=== PATIENT | female | born 1945 | race Caucasian/White ===

== ENCOUNTER 2019-10-12 11:36 | Inpatient (IN) | payer MEDICARE, OTHER ==
[2019-10-12] MEDS ORDERED: Sodium Chloride 0.9% 1,000 ML IV SCH (12:00)
[2019-10-12] MEDS ORDERED: Sodium Chloride 0.9% 10 ML Syringe FLUSH PRN (12:07)
[2019-10-12] MEDS ORDERED: Polyethylene Glycol 3350 Powder 17 GM Packet PO PRN (12:07)
--- NOTE | 2019-10-12 12:13 | PCM.HP.2 ---
H&P History of Present Illness - General Date of Service: 10/12/19 Admit Problem/Dx: Admission Diagnosis/Problem Admission Diagnosis/Problem Abdominal Pain Source of Information: Patient, Provider, RN Notes Reviewed History Limitations: Reports: No Limitations - History of Present Illness Initial Comments - Free Text/Narative: Ms. Moffett is a 74-year-old woman who was admitted through the emergency department with abdominal pain for the past few months. She is experienced a 20 pound weight loss associated with this pain. She does report different types of pain within the abdomen. 1 pain is epigastric and is described as an ache. She has a second cramping pain in the left lower quadrant and periumbilical area that is been present since her surgery for hernia repair 3 months ago. Cramping pain seems to worsen with eating and improves if she avoids oral intake. CT scan of the abdomen was obtained on Saturday, October 08 and showed evidence of possible pancreatitis as well as associated inflammation in the duodenum. 2 separate lipase levels have been within normal range. Bilateral Abdomen Pain Score (Numeric/FACES): 6 - Related Data Allergies/Adverse Reactions: Allergies Allergy/AdvReac Type Severity Reaction Status Date / Time No Known Allergies Allergy Verified 10/09/19 13:16 Home Medications: Home Meds Acetaminophen [Tylenol] 650 mg PO BID PRN 10/12/19 [History] Cetirizine [ZyrTEC] 10 mg PO DAILY 10/12/19 [History] Docusate Sodium 100 mg PO DAILY 10/12/19 [History] Mv,Calcium,Min/Iron/Folic/Vitk [Multi For Her Tablet] 1 tab PO DAILY 10/12/19 [ History] Naproxen Sodium [Aleve] 220 mg PO DAILY PRN 10/12/19 [History] Oxybutynin 5 mg PO BID 10/12/19 [History] lisinopriL [Lisinopril] 5 mg PO DAILY 10/12/19 [History] H&P Review of Systems - Review of Systems: Review Of Systems: See Below General: Reports: Malaise, Weakness, Decreased Appetite, Weight Loss. Denies: Fever, Chills HEENT: Reports: No Symptoms Pulmonary: Reports: No Symptoms Cardiovascular: Reports: No Symptoms Gastrointestinal: Reports: Abdominal Pain, Decreased Appetite, Distension, Nausea. Denies: Black Stool, Bloody Stool, Constipation, Diarrhea, Difficulty Swallowing, Vomiting Genitourinary: Reports: No Symptoms Musculoskeletal: Reports: No Symptoms Skin: Reports: No Symptoms Psychiatric: Reports: No Symptoms Neurological: Reports: No Symptoms Hematologic/Lymphatic: Reports: No Symptoms Immunologic: Reports: No Symptoms Exam - Exam Exam: See Below - Exam Quality Assessment: DVT Prophylaxis General: Alert, Oriented, Cooperative, Moderate Distress HEENT: Conjunctiva Clear, Hearing Intact, Mucosa Moist & [place], Normal Nasal Septum, Posterior Pharynx Clear, Pupils Equal Neck: Supple, Trachea Midline, +2 Carotid Pulse wo Bruit Lungs: Clear to Auscultation, Normal Respiratory Effort Cardiovascular: Regular Rate, Regular Rhythm, Normal S1, Normal S2. No: Systolic Murmur, Diastolic Murmur GI/Abdominal Exam: Soft, No Organomegaly, Distended, Tender. No: Guarding, Rigid, Rebound Back Exam: Normal Inspection, Full Range of Motion Extremities: Non-Tender, No Pedal Edema Skin: Warm, Dry, Intact Neurological: Cranial Nerves Intact, Strength Equal Bilateral, Normal Speech, Normal Tone, Sensation Intact. No: Focal Deficit Neuro Extensive - Mental Status: Alert, Oriented x3, Normal Mood/Affect, Normal Cognition, Memory Intact - Patient Data Result Diagrams: 10/12/19 12:06 10/12/19 12:06 *Q Meaningful Use (ADM) - VTE *Q VTE Pharmacological Contraindications *Q: Patient Scheduled Surgery - VTE Risk Assess *Q Each Risk Factor Represents 1 Point: Obesity ( BMI > 25 kg/m2) Total Score 1 Point Risk Factors: 1 Each Risk Factor Represents 2 Points: Age 60 - 74 Years Total Score 2 Point Risk Factors: 2 Each Risk Factor Represents 3 Points: None Total Score 3 Point Risk Factors: 0 Each Risk Factor Represents 5 Points: None Total Score 5 Point Risk Factors: 0 Venous Thromboembolism Risk Factor Score *Q: 3 Problem List Initiated/Reviewed/Updated: Yes Orders Last 24hrs: Active Orders 24 hr Category Date Time Status Patient Status [ADT] Routine ADT 10/12/19 12:07 Ordered Ambulate [RC] QID Care 10/12/19 12:07 Ordered Height and Weight [RC] DAILY Care 10/12/19 12:07 Ordered Intake and Output [RC] QSHIFT Care 10/12/19 12:07 Ordered Notify Provider Vital Signs [RC] ASDIRECTED Care 10/12/19 12:07 Ordered Oxygen Therapy [RC] PRN Care 10/12/19 12:07 Ordered Peripheral IV Care [RC] . DIRECTED Care 10/12/19 12:12 Ordered Up ad Melissa [RC] ASDIRECTED Care 10/12/19 12:07 Ordered Up to Chair [RC] QID Care 10/12/19 12:07 Ordered VTE/DVT Education [RC] Per Unit Routine Care 10/12/19 12:07 Ordered Vital Signs [RC] Q4H Care 10/12/19 12:07 Ordered Nothing per Oral Now Diet [DIET] Diet 10/12/19 Lunch Ordered AMYLASE [CHEM] Routine Lab 10/12/19 12:06 Received CBC W/O DIFF,HEMOGRAM [HEME] AM Lab 10/13/19 05:11 Ordered CBC WITH AUTO DIFF [HEME] Routine Lab 10/12/19 12:06 Received COMPREHENSIVE METABOLIC PN,CMP [CHEM] AM Lab 10/13/19 05:11 Ordered COMPREHENSIVE METABOLIC PN,CMP [CHEM] Routine Lab 10/12/19 12:06 Received LIPASE [CHEM] Routine Lab 10/12/19 12:06 Received LIPASE [CHEM] Timed Lab 10/13/19 05:00 Ordered Acetaminophen [Tylenol] Med 10/12/19 12:07 Ordered 650 mg PO Q4H PRN Enoxaparin [Lovenox] Med 10/12/19 12:15 Ordered 40 mg SUBCUT DAILY Ondansetron [Zofran] Med 10/12/19 12:07 Ordered 4 mg IV Q4H PRN Sodium Chloride 0.9% @ 125 MLS/HR (1000ml) Med 10/12/19 12:15 Ordered Sodium Chloride 0.9% [Normal Saline] 1,000 ml IV ASDIRECTED Sodium Chloride 0.9% [Saline Flush] Med 10/12/19 12:07 Ordered 10 ml FLUSH ASDIRECTED PRN oxyCODONE Med 10/12/19 12:07 Ordered 5 mg PO Q4H PRN polyethylene glycoL 3350 [MiraLAX] Med 10/12/19 12:07 Ordered 17 gm PO DAILY PRN Peripheral IV Insertion Adult [OM.PC] Routine Oth 10/12/19 12:07 Ordered Resuscitation Status Routine Resus Stat 10/12/19 12:07 Ordered Assessment/Plan Comment:: ASSESSMENT AND PLAN ABDOMINAL PAIN-she has pain in the epigastric region as well as different pain in the left lower quadrant periumbilical region. Evidence of possible pancreatitis noted on CT scan but 2 separate lipase level also have been within normal range. There was also evidence of some duodenal inflammation noted on the CT scan and she does take nonsteroidal medication on a regular basis. -Protonix 40 mg IV twice daily -Consult Dr. Betancur for EGD in a.m. -Consider follow-up CT scan with oral contrast LEFT ADRENAL MASS-by her description this has been noted in the past and previously evaluated with follow-up scans -Obtain previous CT scan for comparison MAINTENANCE ISSUES -DVT prophylaxis; SCUDs, hold on Lovenox because of pending procedures -GI prophylaxis; Protonix as above -Epps catheter; not indicated -Nutrition; n.p.o. -Nicotinic dependence; not required CODE STATUS-FULL CODE ADMISSION STATUS-this patient will be admitted to observation status, expect no more than a one night hospital stay for evaluation and management of problems as outlined above. DISPOSITION-anticipate discharge to home after the hospital stay. PRIMARY CARE PROVIDER-she receives most of her health care in [place] - Mortality Measure Prognosis:: Good
[2019-10-12] MEDS ORDERED: Enoxaparin 40 MG/0.4 ML Syringe SUBCUT SCH (14:00)
[2019-10-12] MEDS: oxyCODONE 5 MG Tab PO PRN ×2 (14:04→19:49)
[2019-10-12] MEDS: Sodium Chloride 0.9% 1,000 ML IV SCH ×2 (14:06→22:08)
[2019-10-12] MEDS: Pantoprazole 40 MG Vial IVPUSH SCH (18:00)
[2019-10-12] MEDS: Enoxaparin 40 MG/0.4 ML Syringe SUBCUT SCH (18:01)
[2019-10-12] MEDS: OXYBUTYNIN 5 MG PO SCH (20:47)
[2019-10-13] MEDS: oxyCODONE 5 MG Tab PO PRN ×2 (05:00→10:00)
[2019-10-13] MEDS: Pantoprazole 40 MG Vial IVPUSH SCH ×2 (05:01→17:02)
[2019-10-13] MEDS: Sodium Chloride 0.9% 1,000 ML IV SCH ×2 (05:05→11:39)
[2019-10-13] MEDS: Acetaminophen 325 MG Tab PO PRN ×2 (07:46→11:48)
[2019-10-13] MEDS: OXYBUTYNIN 5 MG PO SCH ×2 (10:01→20:43)
[2019-10-13] MEDS: LISINOPRIL 5 MG PO SCH (10:02)
[2019-10-13] MEDS: Docusate Sodium 100 MG Cap PO SCH (10:03)
[2019-10-13] MEDS: CETIRIZINE 10 MG PO SCH (10:05)
[2019-10-13] MEDS ORDERED: Iopamidol 612 MG/ML 30 ML SDV PO ONE ×2 (10:20→11:19)
[2019-10-13] MEDS: Ondansetron 4 MG/2 ML SDV IV PRN (10:25)
[2019-10-13] MEDS ORDERED: Iopamidol 612 MG/ML 100 ML Bottle IV PRN (10:50)
[2019-10-13] MEDS ORDERED: Sodium Chloride 0.9% 10 ML Syringe FLUSH SCH (11:00)
[2019-10-13] MEDS ORDERED: HYDROmorphone 0.5 MG/0.5 ML Syringe IVPUSH ONE (11:49)
--- NOTE | 2019-10-13 14:49 | CT ---
Abdomen Pelvis w Cont CLINICAL HISTORY: Abdominal pain COMPARISON: 10/09/2019. TECHNIQUE: Transverse scans were obtained from the base of the lungs to the pubic symphysis following oral contrast and IV infusion of contrast.Auto dosage reduction and iterative reconstructiontechniques employed. FINDINGS: The lung bases are clear. The liver shows no mass or biliary dilatation. The gallbladder has been removed. The spleen has a normal size and shape. There is a LAP band in place. There is a slight change in orientation. This may be related to some gastric distention with contrast. The pancreas is better defined on the current study in the region of the pancreatic head. There is no obvious thickening or ill-definition in the descending duodenum on the current exam. There is no ductal dilatation.. There is a previously described to the 2.3 x 3.0 cm mass in the left adrenal gland. The kidneys show no mass, stones or hydronephrosis. The ureters have normal course and contour. The aorta is free of aneurysm. There is no suspicious retroperitoneal adenopathy. There is some diffuse gaseous distention of the colon. The previously described rotation of the mesenteric vessels in the right lower quadrant has diminished. There is now some rotation of upper mesenteric vessels in the opposite direction. This mesenteric rotation may be related to patient's weight loss. It may also be related to difference in the volume of the fluid in the stomach and small intestine. IMPRESSION: No significant inflammatory changes are seen in the region of the descending duodenum and pancreatic head on current exam. Slight change in rotation mesenteric vessels compared to prior study. This difference may be related to fluid volume in the GI tract. There is no evidence of formation or mucosal swelling. The slight change in positioning of the left than may also be related to increased gastric fluid volume Previously described left adrenal mass
[2019-10-13] MEDS ORDERED: HYDROmorphone 0.5 MG/0.5 ML Syringe IVPUSH PRN (14:59)
--- NOTE | 2019-10-13 15:05 | PCM.PN ---
- General Info Date of Service: 10/13/19 Subjective Update: Ms. Moffett continues to experience abdominal pain. EGD was performed this morning by Dr. Betancur and did show some inflammation distal stomach related to her previous bariatric surgery. Follow-up CT scan shows no evidence of duodenal or pancreatic inflammation. Rotation in the impaired mesenteric vessels has changed compared to the previous scan. Functional Status: Reports: Ambulating, Urinating - Review of Systems General: Reports: Weakness, Malaise. Denies: Fever, Chills Pulmonary: Reports: No Symptoms Cardiovascular: Reports: No Symptoms Gastrointestinal: Reports: Abdominal Pain, Nausea. Denies: Diarrhea, Difficulty Swallowing, Hematochezia, Melena, Vomiting Genitourinary: Reports: No Symptoms - Patient Data Vitals - Most Recent: Last Vital Signs Temp 97.2 F 10/13/19 11:34 Pulse 51 L 10/13/19 11:34 Resp 20 10/13/19 11:34 BP 142/50 H 10/13/19 11:34 Pulse Ox 95 10/13/19 11:34 Weight - Most Recent: 181 lb I&O - Last 24 Hours: Intake & Output 10/13/19 10/13/19 10/13/19 06:59 14:59 22:59 Intake Total 1377 Output Total 400 Balance 977 Lab Results Last 24 Hours: Laboratory Results - last 24 hr 10/13/19 10/13/19 10/13/19 Range/Units 05:30 05:30 05:30 WBC 4.8 (4.5-11.0) K/uL RBC 4.43 (3.30-5.50) M/uL Hgb 13.4 (12.0-15.0) g/dL Hct 42.5 (36.0-48.0) % MCV 96 (80-98) fL MCH 30 (27-31) pg MCHC 32 (32-36) % Plt Count 223 (150-400) K/uL Sodium 139 L (140-148) mmol/L Potassium 3.8 (3.6-5.2) mmol/L Chloride 105 (100-108) mmol/L Carbon Dioxide 26 (21-32) mmol/L Anion Gap 11.8 (5.0-14.0) mmol/L BUN 11 (7-18) mg/dL Creatinine 0.8 (0.6-1.0) mg/dL Est Cr Clr Drug Dosing 50.27 mL/min Estimated GFR (MDRD) > 60 (>60) Glucose 74 (74-106) mg/dL Calcium 8.5 (8.5-10.1) mg/dL Total Bilirubin 1.3 H (0.2-1.0) mg/dL AST 16 (15-37) U/L ALT 16 (12-78) U/L Alkaline Phosphatase 77 (46-116) U/L Total Protein 6.2 L (6.4-8.2) g/dL Albumin 3.0 L (3.4-5.0) g/dL Globulin 3.2 (2.3-3.5) g/dL Albumin/Globulin Ratio 0.9 L (1.2-2.2) Lipase 63 L (73-393) U/L Med Orders - Current: Current Medications Acetaminophen (Tylenol) 650 mg PO Q4H PRN PRN Reason: Pain (Mild 1-3)/fever Last Admin: 10/13/19 11:48 Dose: 650 mg Cetirizine HCl (Zyrtec) 10 mg PO DAILY [facility] Last Admin: 10/13/19 10:05 Dose: Not Given Docusate Sodium (Colace) 100 mg PO DAILY [facility] Last Admin: 10/13/19 10:03 Dose: 100 mg Enoxaparin Sodium (Lovenox) 40 mg SUBCUT Q24H [facility] Last Admin: 10/12/19 18:01 Dose: 40 mg Hydromorphone HCl (Dilaudid) 0.5 mg IVPUSH Q2H PRN PRN Reason: Pain (severe 7-10) Iopamidol (Isovue-300 (61%)) 100 ml IV . DIRECTED PRN PRN Reason: RADIOLOGY EXAM Stop: 10/14/19 10:51 Last Admin: 10/13/19 12:51 Dose: 100 ml Lisinopril (Prinivil) 5 mg PO DAILY [facility] Last Admin: 10/13/19 10:02 Dose: 5 mg Ondansetron HCl (Zofran) 4 mg IV Q4H PRN PRN Reason: Nausea/Vomiting Last Admin: 10/13/19 10:25 Dose: 4 mg Oxybutynin Chloride (Oxybutynin) 5 mg PO BID [facility] Last Admin: 10/13/19 10:01 Dose: 5 mg Oxycodone HCl (Oxycodone) 5 mg PO Q4H PRN PRN Reason: Pain (moderate 4-6) Last Admin: 10/13/19 10:00 Dose: 5 mg Pantoprazole Sodium (Protonix Iv) 40 mg IVPUSH Q12H [facility] Last Admin: 10/13/19 05:01 Dose: 40 mg Polyethylene Glycol (Miralax) 17 gm PO DAILY PRN PRN Reason: Constipation Sodium Chloride (Saline Flush) 10 ml FLUSH ASDIRECTED PRN PRN Reason: Keep Vein Open Sodium Chloride (Saline Flush) 10 ml FLUSH ONETIME [facility] Stop: 10/13/19 16:00 Last Admin: 10/13/19 12:51 Dose: 10 ml Discontinued Medications Enoxaparin Sodium (Lovenox) 40 mg SUBCUT Q24H [facility] Last Admin: 10/12/19 16:16 Dose: Not Given Hydromorphone HCl (Dilaudid) 0.5 mg IVPUSH ONETIME ONE Stop: 10/13/19 11:50 Last Admin: 10/13/19 12:23 Dose: 0.5 mg Sodium Chloride (Normal Saline) 1,000 mls @ 125 mls/hr IV ASDIRECTED LIZETH Sodium Chloride (Normal Saline) 1,000 mls @ 125 mls/hr IV ASDIRECTED [facility] Last Admin: 10/13/19 11:39 Dose: 125 mls/hr Sodium Chloride (Normal Saline) 77 mls @ 3.5 mls/sec IV ASDIRECTED [facility] Stop: 10/13/19 16:00 Last Admin: 10/13/19 12:51 Dose: 3.5 mls/sec Iopamidol (Isovue-300 (61%)) 30 ml PO ASDIRECTED ONE Stop: 10/13/19 10:21 Last Admin: 10/13/19 11:09 Dose: 30 ml Iopamidol (Isovue-300 (61%)) 30 ml PO ASDIRECTED ONE Stop: 10/13/19 11:20 Last Admin: 10/13/19 12:52 Dose: 30 ml - Exam Quality Assessment: DVT Prophylaxis General: Alert, Oriented, Cooperative, Moderate Distress Lungs: Clear to Auscultation, Normal Respiratory Effort Cardiovascular: Regular Rate, Regular Rhythm, No Murmurs GI/Abdominal Exam: Soft, No Organomegaly, Distended, Tender. No: Guarding, Rigid, Rebound Sepsis Event Note - Evaluation Sepsis Screening Result: No Definite Risk - Focused Exam Vital Signs: Vital Signs Temp Pulse Resp BP BP Pulse Ox 10/13/19 11:34 97.2 F 51 L 20 142/50 H 95 10/13/19 10:02 135/66 10/13/19 09:40 96.6 F L 50 L 16 148/63 H 94 L 10/13/19 09:35 50 L 16 129/52 L 98 10/13/19 09:30 50 L 14 130/53 L 96 10/13/19 09:25 52 L 16 119/44 L 96 10/13/19 09:20 97.0 F 53 L 14 146/111 H 98 10/13/19 07:41 96.4 F L 55 L 16 148/80 H 97 10/13/19 03:49 96.9 F 46 L 16 107/41 L 97 Date Exam was Performed: 10/13/19 Time Exam was Performed: 15:02 - Problem List Review Problem List Initiated/Reviewed/Updated: Yes - My Orders Last 24 Hours: My Active Orders 10/12/19 14:08 Consult to Physician [CONS] Routine 10/12/19 14:09 Notify Provider Consults [RC] ASDIRECTED 10/12/19 18:00 Enoxaparin [Lovenox] 40 mg SUBCUT Q24H Pantoprazole [ProTONIX IV] 40 mg IVPUSH Q12H 10/12/19 21:00 Oxybutynin 5 mg PO BID 10/13/19 09:00 Cetirizine [ZyrTEC] 10 mg PO DAILY Docusate Sodium [Colace] 100 mg PO DAILY lisinopriL [Prinivil] 5 mg PO DAILY 10/13/19 10:50 Iopamidol [Isovue-300 (61%)] 100 ml IV . DIRECTED PRN 10/13/19 11:00 Sodium Chloride 0.9% [Saline Flush] 10 ml FLUSH ONETIME 10/13/19 14:59 HYDROmorphone [Dilaudid] 0.5 mg IVPUSH Q2H PRN 10/13/19 15:01 Convert IV to Saline Lock [OM.PC] Routine 10/13/19 Lunch Full Liquid Diet [DIET] 10/14/19 05:00 COMPREHENSIVE METABOLIC PN,CMP [CHEM] Timed - Plan Plan:: ASSESSMENT AND PLAN ABDOMINAL PAIN-she has pain in the epigastric region as well as different pain in the left lower quadrant periumbilical region. ED showed some inflammation in the stomach likely related to previous bariatric surgery. No evidence on this CT scan of pancreatic or duodenal inflammation. Continues to experience abdominal pain and nausea. -Protonix 40 mg IV twice daily -Surgical follow-up per Dr. Betancur LEFT ADRENAL MASS-by her description this has been noted in the past and previously evaluated with follow-up scans -Obtain previous CT scan for comparison MAINTENANCE ISSUES -DVT prophylaxis; SCUDs, hold on Lovenox because of pending procedures -GI prophylaxis; Protonix as above -Epps catheter; not indicated -Nutrition; n.p.o. -Nicotinic dependence; not required CODE STATUS-FULL CODE ADMISSION STATUS-this patient will be admitted to observation status, expect no more than a one night hospital stay for evaluation and management of problems as outlined above. DISPOSITION-anticipate discharge to home after the hospital stay. PRIMARY CARE PROVIDER-she receives most of her health care in [place]
[2019-10-13] MEDS: Enoxaparin 40 MG/0.4 ML Syringe SUBCUT SCH (17:03)
[2019-10-14] MEDS: HYDROmorphone 2 MG Tab PO PRN ×2 (01:50→14:59)
[2019-10-14] MEDS: Pantoprazole 40 MG Vial IVPUSH SCH (05:05)
[2019-10-14] MEDS: CETIRIZINE 10 MG PO SCH (08:34)
[2019-10-14] MEDS: Docusate Sodium 100 MG Cap PO SCH (08:34)
[2019-10-14] MEDS: OXYBUTYNIN 5 MG PO SCH ×2 (08:35→20:14)
[2019-10-14] MEDS: LISINOPRIL 5 MG PO SCH (08:35)
--- NOTE | 2019-10-14 10:04 | OR ---
DATE OF PROCEDURE: 10/13/2019 SURGEON: Garfield Betancur MD PROCEDURE: Esophagogastroduodenoscopy. FINDINGS: 1. Intact lap band with no evidence of abnormality. 2. Tortuosity of the duodenum secondary probably to lap band postoperative status. 3. Inflammation at the junction of the antrum and duodenum with small polypoid type lesion (biopsied using cold biopsy forceps). COMPLICATIONS: None. [employer] AGENT: None. PREOPERATIVE DIAGNOSIS: Abdominal pain. POSTOPERATIVE DIAGNOSIS: Abdominal pain. RISKS: Risks, benefits, alternatives, and limitations including, but not limited to infection, bleeding, and perforation were explained to the patient, who wished to proceed. PROCEDURE IN DETAIL: The patient was placed in the left lateral decubitus position. The EGD scope was introduced and advanced atraumatically into the esophagus. In the proximal stomach, the band was encountered. No evidence of erosion or abnormality. The pouch was appropriate. Stomach itself did not show any ulcerations. At the junction of the antrum and duodenum, the patient had a significant variance of angle, probably due to the dissection that occurred during the lap band. This was not occlusive, and the duodenum could be entered. Nonetheless, this creates a small functional physiological outflow issue. In this corner, there is some tissue consistent with possibly a polyp, lesion, or a healed ulcer. This was biopsied using cold biopsy forceps. On retroflexion, no abnormalities were noted. The esophagus was normal. The patient tolerated the procedure well. Garfield Betancur MD /[id number]
--- NOTE | 2019-10-14 11:40 | PCM.PN ---
- General Info Date of Service: 10/14/19 Subjective Update: Ms. Moffett is improved since yesterday with significant decrease in abdominal pain, she is currently tolerating a full liquid diet. Laboratory studies have been stable and she has remained afebrile. Functional Status: Reports: Tolerating Diet, Ambulating, Urinating - Review of Systems General: Reports: Weakness. Denies: Fever, Chills Pulmonary: Reports: No Symptoms Cardiovascular: Reports: No Symptoms Gastrointestinal: Reports: Abdominal Pain. Denies: Decreased Appetite, Difficulty Swallowing, Nausea, Vomiting - Patient Data Vitals - Most Recent: Last Vital Signs Temp 97.4 F 10/14/19 07:14 Pulse 50 L 10/14/19 07:14 Resp 16 10/14/19 07:14 BP 110/69 10/14/19 08:35 Pulse Ox 97 10/14/19 07:14 Weight - Most Recent: 180 lb I&O - Last 24 Hours: Intake & Output 10/13/19 10/14/19 10/14/19 22:59 06:59 14:59 Intake Total 1157 Output Total 450 700 Balance 707 -700 Lab Results Last 24 Hours: Laboratory Results - last 24 hr 10/14/19 Range/Units 04:00 Sodium 139 L (140-148) mmol/L Potassium 3.7 (3.6-5.2) mmol/L Chloride 104 (100-108) mmol/L Carbon Dioxide 28 (21-32) mmol/L Anion Gap 10.7 (5.0-14.0) mmol/L BUN 8 (7-18) mg/dL Creatinine 0.8 (0.6-1.0) mg/dL Est Cr Clr Drug Dosing 50.27 mL/min Estimated GFR (MDRD) > 60 (>60) Glucose 78 (74-106) mg/dL Calcium 8.8 (8.5-10.1) mg/dL Total Bilirubin 1.2 H (0.2-1.0) mg/dL AST 17 (15-37) U/L ALT 17 (12-78) U/L Alkaline Phosphatase 74 (46-116) U/L Total Protein 5.9 L (6.4-8.2) g/dL Albumin 3.0 L (3.4-5.0) g/dL Globulin 2.9 (2.3-3.5) g/dL Albumin/Globulin Ratio 1.0 L (1.2-2.2) Med Orders - Current: Current Medications Acetaminophen (Tylenol) 650 mg PO Q4H PRN PRN Reason: Pain (Mild 1-3)/fever Last Admin: 10/13/19 11:48 Dose: 650 mg Cetirizine HCl (Zyrtec) 10 mg PO DAILY [facility] Last Admin: 10/14/19 08:34 Dose: Not Given Docusate Sodium (Colace) 100 mg PO DAILY [facility] Last Admin: 10/14/19 08:34 Dose: 100 mg Enoxaparin Sodium (Lovenox) 40 mg SUBCUT Q24H [facility] Last Admin: 10/13/19 17:03 Dose: 40 mg Hydromorphone HCl (Dilaudid) 2 mg PO Q4H PRN PRN Reason: Pain Last Admin: 10/14/19 01:50 Dose: 2 mg Lisinopril (Prinivil) 5 mg PO DAILY [facility] Last Admin: 10/14/19 08:35 Dose: 5 mg Ondansetron HCl (Zofran) 4 mg IV Q4H PRN PRN Reason: Nausea/Vomiting Last Admin: 10/13/19 10:25 Dose: 4 mg Oxybutynin Chloride (Oxybutynin) 5 mg PO BID [facility] Last Admin: 10/14/19 08:35 Dose: 5 mg Pantoprazole Sodium (Protonix) 40 mg PO BIDAC [facility] Polyethylene Glycol (Miralax) 17 gm PO DAILY PRN PRN Reason: Constipation Sodium Chloride (Saline Flush) 10 ml FLUSH ASDIRECTED PRN PRN Reason: Keep Vein Open Discontinued Medications Enoxaparin Sodium (Lovenox) 40 mg SUBCUT Q24H [facility] Last Admin: 10/12/19 16:16 Dose: Not Given Hydromorphone HCl (Dilaudid) 0.5 mg IVPUSH ONETIME ONE Stop: 10/13/19 11:50 Last Admin: 10/13/19 12:23 Dose: 0.5 mg Hydromorphone HCl (Dilaudid) 0.5 mg IVPUSH Q2H PRN PRN Reason: Pain (severe 7-10) Sodium Chloride (Normal Saline) 1,000 mls @ 125 mls/hr IV ASDIRECTED [facility] Sodium Chloride (Normal Saline) 1,000 mls @ 125 mls/hr IV ASDIRECTED LIZETH Last Admin: 10/13/19 11:39 Dose: 125 mls/hr Sodium Chloride (Normal Saline) 77 mls @ 3.5 mls/sec IV ASDIRECTED LIZETH Stop: 10/13/19 16:00 Last Admin: 10/13/19 12:51 Dose: 3.5 mls/sec Iopamidol (Isovue-300 (61%)) 30 ml PO ASDIRECTED ONE Stop: 10/13/19 10:21 Last Admin: 10/13/19 11:09 Dose: 30 ml Iopamidol (Isovue-300 (61%)) 100 ml IV . DIRECTED PRN PRN Reason: RADIOLOGY EXAM Stop: 10/14/19 10:51 Last Admin: 10/13/19 12:51 Dose: 100 ml Iopamidol (Isovue-300 (61%)) 30 ml PO ASDIRECTED ONE Stop: 10/13/19 11:20 Last Admin: 10/13/19 12:52 Dose: 30 ml Oxycodone HCl (Oxycodone) 5 mg PO Q4H PRN PRN Reason: Pain (moderate 4-6) Last Admin: 10/13/19 10:00 Dose: 5 mg Pantoprazole Sodium (Protonix Iv) 40 mg IVPUSH Q12H [facility] Last Admin: 10/14/19 05:05 Dose: 40 mg Sodium Chloride (Saline Flush) 10 ml FLUSH ONETIME [facility] Stop: 10/13/19 16:00 Last Admin: 10/13/19 12:51 Dose: 10 ml - Exam Quality Assessment: DVT Prophylaxis General: Alert, Oriented, Cooperative, Mild Distress Lungs: Clear to Auscultation, Normal Respiratory Effort Cardiovascular: Regular Rate, Regular Rhythm, No Murmurs GI/Abdominal Exam: Soft, No Organomegaly, Tender. No: Distended, Guarding, Rigid, Rebound Extremities: Non-Tender, No Pedal Edema Sepsis Event Note - Evaluation Sepsis Screening Result: No Definite Risk - Focused Exam Vital Signs: Vital Signs Temp Pulse Resp BP BP Pulse Ox 10/14/19 08:35 110/69 10/14/19 07:14 97.4 F 50 L 16 110/69 97 10/14/19 03:00 97.0 F 51 L 16 125/63 96 Date Exam was Performed: 10/14/19 Time Exam was Performed: 11:38 - Problem List Review Problem List Initiated/Reviewed/Updated: Yes - My Orders Last 24 Hours: My Active Orders 10/13/19 15:01 Convert IV to Saline Lock [OM.PC] Routine 10/13/19 19:34 HYDROmorphone [Dilaudid] 2 mg PO Q4H PRN 10/14/19 16:30 Pantoprazole [ProTONIX] 40 mg PO BIDAC 10/14/19 Lunch GI Soft Low Fiber [Soft Diet] [DIET] - Plan Plan:: ASSESSMENT AND PLAN ABDOMINAL PAIN-she has pain in the epigastric region as well as different pain in the left lower quadrant periumbilical region. ED showed some inflammation in the stomach likely related to previous bariatric surgery. No evidence on this CT scan of pancreatic or duodenal inflammation. Improved since yesterday with less pain, tolerating current diet. -Protonix 40 mg po twice daily -Surgical follow-up per Dr. Betancur -Advance to soft low residue diet LEFT ADRENAL MASS-by her description this has been noted in the past and previously evaluated with follow-up scans -Obtain previous CT scan for comparison MAINTENANCE ISSUES -DVT prophylaxis; SCUDs, hold on Lovenox because of pending procedures -GI prophylaxis; Protonix as above -Epps catheter; not indicated -Nutrition; n.p.o. -Nicotinic dependence; not required CODE STATUS-FULL CODE ADMISSION STATUS-this patient will be admitted to observation status, expect no more than a one night hospital stay for evaluation and management of problems as outlined above. DISPOSITION-anticipate discharge to home after the hospital stay. PRIMARY CARE PROVIDER-she receives most of her health care in [place]
[2019-10-14] MEDS: Ondansetron 4 MG/2 ML SDV IV PRN (13:16)
[2019-10-14] MEDS: Pantoprazole 40 MG Tab.CR PO SCH (16:30)
[2019-10-14] MEDS: Enoxaparin 40 MG/0.4 ML Syringe SUBCUT SCH (17:58)
[2019-10-15] MEDS: Pantoprazole 40 MG Tab.CR PO SCH (07:55)
[2019-10-15] MEDS: CETIRIZINE 10 MG PO SCH (08:00)
[2019-10-15] MEDS: OXYBUTYNIN 5 MG PO SCH (08:00)
[2019-10-15] MEDS: LISINOPRIL 5 MG PO SCH (08:00)
[2019-10-15] MEDS: Docusate Sodium 100 MG Cap PO SCH (08:00)
--- NOTE | 2019-10-15 11:23 | PN ---
DATE OF SERVICE: 10/15/2019 SUBJECTIVE: The patient is doing very well today. Pain is well controlled. No nausea, vomiting, shortness of breath, or chest pain. Tolerating diet, having bowel movements. OBJECTIVE: VITAL SIGNS: Stable. She is afebrile. Blood pressure 129/70, 99% on room air. ABDOMEN: No pain with palpation. ASSESSMENT: Status post esophagogastroduodenoscopy. PLAN: The patient will be discharged today. Please see discharge summary for further details. Garfield Betancur MD /[id number]
--- NOTE | 2019-10-15 11:32 | DISCH ---
DISCHARGE DIAGNOSIS: Abdominal pain. SUMMARY OF HOSPITAL COURSE: This is a pleasant 74-year-old female who was originally seen in the clinic. The patient was admitted by Dr. Weinberg and managed with surgery and medicine. She had undergone a CT scan, which suggested pancreatitis. However, her amylase and lipase had remained normal. The patient underwent EGD during this hospitalization. No inflammation was noted in the duodenum. However, small biopsies were performed of a polypoid-type area. The patient did not manifest any pancreatitis symptoms, although this was diagnosed via CT scan. In fact, a followup CT scan during this hospitalization did not show any pancreatitis either. The patient's abdominal pain continued to improve. Prior to discharge, her pain was well controlled. She had no nausea, vomiting, shortness of breath, or chest pain. Most likely etiology of this abdominal pain is adhesion secondary to multiple surgeries. However, the patient can manage this as an outpatient and would prefer this compared to a diagnostic laparoscopy which we discussed risks, benefits, alternatives, and limitations. As far as followup, the patient will follow up on an as-needed basis. She does see a bariatric group in [place] and will continue to be managed with them.
== END 2019-10-15 10:30 | disposition home or self-care (01) | DRG 395 ==
LOC: JP.MS 11:36
PROVIDERS: ADMIT Surgery; ATTEND Hospitalist
PROC: 0DB68ZX Excision of Stomach, Via Natural or Artificial Opening Endoscopic, Diagnostic (ICD-10-PCS; principal; 2019-10-13)
DX: K66.0 Peritoneal adhesions (postprocedural) (postinfection) (principal); E27.8 Other specified disorders of adrenal gland; Z79.899 Other long term (current) drug therapy
CPT/HCPCS: 36415; 74177; 74177-26; 80053; 82150; 83690; 85025; 85027; A9270-GY; C9113; J1170; J1650; J2405; J7030; J7050; Q9967

== ENCOUNTER 2020-01-05 13:22 | Emergency (ER) | payer MEDICARE, OTHER ==
[2020-01-05] MEDS ORDERED: HYDROmorphone 0.5 MG/0.5 ML Syringe IVPUSH ONE ×2 (14:44→17:13)
[2020-01-05] MEDS ORDERED: Sodium Chloride 0.9% 1,000 ML IV SCH (14:45)
--- NOTE | 2020-01-05 14:59 | EDM.PDOC ---
ED HPI GENERAL MEDICAL PROBLEM - General Chief Complaint: Abdominal Pain Stated Complaint: STOMACH PAIN AND GOING AROUND BACK Time Seen by Provider: 01/05/20 14:40 Source of Information: Reports: Patient, Family History Limitations: Reports: No Limitations - History of Present Illness INITIAL COMMENTS - FREE TEXT/NARRATIVE: 74-year-old female with a chronic complicated history of abdominal surgeries, LAP-BAND, was hospitalized 2 months ago with abdominal pain which seemed to resolve with just hydration and observation. She had a second opinion on a [facility] and apparently needed a procedure to remove part of the band that "went into her stomach". She was doing better but now is having pain again over the past 3 to 4 days, no distention, no fevers or chills, just significant persistent generalized abdominal pain radiating through to her back. Bowels are moving. Onset: Gradual Duration: Day(s): (3 to 4 days of symptoms) Associated Symptoms: Reports: Loss of Appetite, Malaise. Denies: Chest Pain, Cough, Fever/Chills, Shortness of Breath Abdominal Pain Score (Numeric/FACES): 8 - Related Data Allergies Allergy/AdvReac Type Severity Reaction Status Date / Time No Known Allergies Allergy Verified 10/09/19 13:16 Home Meds: Home Meds Acetaminophen [Tylenol] 650 mg PO BID PRN 10/12/19 [History] Cetirizine [ZyrTEC] 10 mg PO DAILY 10/12/19 [History] Mv,Calcium,Min/Iron/Folic/Vitk [Multi For Her Tablet] 1 tab PO DAILY 10/12/19 [History] Naproxen Sodium [Aleve] 220 mg PO DAILY PRN 10/12/19 [History] Oxybutynin 5 mg PO BID 10/12/19 [History] lisinopriL [Lisinopril] 5 mg PO DAILY 10/12/19 [History] Past Medical History HEENT History: Reports: Impaired Vision, Other (See Below) Other HEENT History: Bilateral Cataract Surgery 2 yrs ago Cardiovascular History: Reports: Hypertension Gastrointestinal History: Reports: Cholelithiasis, Chronic Constipation, Chronic Diarrhea, GERD Genitourinary History: Reports: Other (See Below) Other Genitourinary History: Stress Incontinence STATISTICS INTERN History: Reports: , Spontaneous Musculoskeletal History: Reports: Arthritis Neurological History: Reports: Concussion Other Neuro History: Concussion 4 years ago Psychiatric History: Reports: Depression, Panic Attack - Infectious Disease History Infectious Disease History: Reports: Chicken Pox, Measles, Mononucleosis, Mumps, Shingles - Past Surgical History HEENT Surgical History: Reports: Cataract Surgery Cardiovascular Surgical History: Reports: None GI Surgical History: Reports: Appendectomy, Bariatric Procedure, Cholecystectomy, Colonoscopy, Hernia, Abdominal, Hernia Repair/Other, Other (See Below) Other GI Surgeries/Procedures: Lap Band 2009. lap band and port removed in november 2019 Female Surgical History: Reports: None Musculoskeletal Surgical History: Reports: Knee Replacement Other Musculoskeletal Surgeries/Procedures:: Lt Knee Social & Family History - Tobacco Use Smoking Status *Q: Never Smoker - Caffeine Use Caffeine Use: Reports: None - Recreational Drug Use Recreational Drug Use: No ED ROS GENERAL - Review of Systems Review Of Systems: See Below Constitutional: Reports: Malaise. Denies: Fever, Chills Respiratory: Denies: Shortness of Breath Cardiovascular: Denies: Chest Pain GI/Abdominal: Reports: Abdominal Pain, Nausea. Denies: Constipation, Diarrhea, Vomiting : Reports: No Symptoms Musculoskeletal: Reports: Back Pain Skin: Reports: No Symptoms Neurological: Reports: No Symptoms ED EXAM, GI/ABD - Physical Exam Exam: See Below Exam Limited By: No Limitations General Appearance: Alert, Mild Distress (Looks fairly uncomfortable) Eyes: Bilateral: Normal Appearance (Well hydrated, no jaundice) Throat/Mouth: Normal Inspection Head: Atraumatic Respiratory/Chest: No Respiratory Distress, Lungs Clear Cardiovascular: Regular Rate, Rhythm. No: Tachycardia GI/Abdominal Exam: Normal Bowel Sounds, Soft, Tender (Does react with tenderness to palpation across the lower abdomen and left upper quadrant, mild guarding) Extremities: Normal Inspection Neurological: Alert, Oriented Psychiatric: Normal Affect, Normal Mood Skin Exam: Warm, Dry Course - Vital Signs Last Recorded V/S: Last Vital Signs Temp 98.3 F 01/05/20 15:19 Pulse 67 01/05/20 15:19 Resp 16 01/05/20 15:19 BP 194/84 H 01/05/20 15:19 Pulse Ox 100 01/05/20 15:19 - Orders/Labs/Meds Labs: Laboratory Tests 01/05/20 01/05/20 01/05/20 Range/Units 14:48 14:48 14:48 WBC 6.3 (4.5-11.0) K/uL RBC 4.57 (3.30-5.50) M/uL Hgb 13.9 (12.0-15.0) g/dL Hct 43.0 (36.0-48.0) % MCV 94 (80-98) fL MCH 30 (27-31) pg MCHC 32 (32-36) % Plt Count 296 (150-400) K/uL Neut % (Auto) 61 (36-66) % Lymph % (Auto) 32 (24-44) % Dale % (Auto) 6 (2-6) % Eos % (Auto) 1 L (2-4) % Baso % (Auto) 0 (0-1) % Sodium 139 L (140-148) mmol/L Potassium 3.8 (3.6-5.2) mmol/L Chloride 103 (100-108) mmol/L Carbon Dioxide 25 (21-32) mmol/L Anion Gap 14.8 H (5.0-14.0) mmol/L BUN 17 D (7-18) mg/dL Creatinine 0.8 (0.6-1.0) mg/dL Est Cr Clr Drug Dosing 50.27 mL/min Estimated GFR (MDRD) > 60 (>60) Glucose 87 (74-106) mg/dL Lactic Acid 1.0 (0.4-2.0) mmol/L Calcium 9.6 (8.5-10.1) mg/dL Total Bilirubin 0.9 (0.2-1.0) mg/dL AST 14 L (15-37) U/L ALT 11 L (12-78) U/L Alkaline Phosphatase 95 (46-116) U/L Total Protein 7.4 (6.4-8.2) g/dL Albumin 3.6 (3.4-5.0) g/dL Globulin 3.8 H (2.3-3.5) g/dL Albumin/Globulin Ratio 1.0 L (1.2-2.2) Lipase 43 L (73-393) U/L Meds: Medications Discontinued Medications Generic Name Dose Route Start Last Admin Trade Name Freq PRN Reason Stop Dose Admin Hydromorphone HCl 0.5 mg 01/05/20 14:44 01/05/20 14:46 Dilaudid IVPUSH 01/05/20 14:45 0.5 mg ONETIME ONE Administration Hydromorphone HCl 0.5 mg 01/05/20 17:13 01/05/20 17:17 Dilaudid IVPUSH 01/05/20 17:14 0.5 mg ONETIME ONE Administration Sodium Chloride 1,000 mls @ 500 mls/hr 01/05/20 14:45 01/05/20 14:46 Normal Saline IV 500 mls/hr ASDIRECTED LIZETH Administration Sodium Chloride 80 mls @ 3 mls/sec 01/05/20 15:30 01/05/20 16:09 Normal Saline IV 3 mls/sec ASDIRECTED LIZETH Administration Iopamidol 100 ml 01/05/20 15:30 01/05/20 16:09 Isovue-300 (61%) IV 100 ml . DIRECTED LIZETH Administration Pantoprazole Sodium 40 mg 01/05/20 17:49 01/05/20 17:54 Protonix Iv IVPUSH 01/05/20 17:50 40 mg ONETIME ONE Administration Sodium Chloride 10 ml 01/05/20 15:30 01/05/20 16:09 Saline Flush FLUSH 10 ml ASDIRECTED PRN Administration Keep Vein Open - Re-Assessments/Exams Free Text/Narrative Re-Assessment/Exam: 01/05/20 14:58 An IV was started the patient was hydrated with normal saline and given 0.5 mg of IV Dilaudid. Notes were reviewed from her last hospitalization and nothing really was found at that time. CBC CMP and lipase were obtained as well as lactic acid. CT will probably have to be repeated because of her complex history. 01/05/20 16:08 Patient got fairly good relief from the IV Dilaudid, her CBC CMP and lipase were completely normal. CT is pending. 01/05/20 17:50 CT scan showed duodenitis, otherwise negative. Patient had to be given a second dose of Dilaudid 0.5 [address] report. After the report, she was given 4 mg of IV Protonix and encouraged to take 40 mg of omeprazole daily for the next 10 days. She can return if not improving after 2 to 3 days. Departure - Departure Time of Disposition: 18:04 Disposition: Home, Self-Care 01 Clinical Impression: Duodenitis Abdominal pain Qualifiers: Abdominal location: upper abdomen, unspecified Qualified Code(s): R10.10 - Upper abdominal pain, unspecified - Discharge Information Instructions: Duodenitis Referrals: PCP,None [Primary Care Provider] - Forms: ED Department Discharge Care Plan Goals: Starting tomorrow, take 40 mg of omeprazole daily 20 minutes before your first meal. Take for at least 7 to 10 days, and consider rechecking if not improving satisfactorily after 4 to 6 days. If improved, continue on 20 mg daily for a full 30 additional days.
[2020-01-05] MEDS ORDERED: Sodium Chloride 0.9% 80 ML IV SCH (15:30)
[2020-01-05] MEDS ORDERED: Iopamidol 612 MG/ML 100 ML Bottle IV SCH (15:30)
[2020-01-05] MEDS ORDERED: Sodium Chloride 0.9% 10 ML Syringe FLUSH PRN (15:30)
--- NOTE | 2020-01-05 17:47 | CRLCT ---
INDICATION: Abdominal pain, status post lap band removal November 23, 2019 TECHNIQUE: CT abdomen and pelvis acquired with 100 cc Isovue IV contrast. COMPARISON: October 08 and 2019 FINDINGS: Lower chest: Unremarkable. Liver: Unremarkable. Spleen: Unremarkable. Pancreas: Unremarkable. No peripancreatic fat stranding. Gallbladder and bile ducts: S/p cholecystectomy. Adrenal glands: 2.4 x 2.1 cm left adrenal gland nodule, stable Kidneys: Unremarkable. GI tract: Postsurgical changes from lap band removal. No surgical complication identified. New circumferential wall thickening the pylorus and 1st portion of the duodenum with mild surrounding fat stranding. No extraluminal air. Colonic diverticulosis. Appendix is normal. Vascular structures: Unremarkable. Lymph nodes: Unremarkable. Miscellaneous: Unremarkable. No free air or significant free fluid. Pelvic Organs: Unremarkable. Bones: Unremarkable for age. IMPRESSION: New circumferential wall thickening of the pylorus and proximal duodenum consistent with gastritis/duodenitis. No extraluminal air. No evidence for acute pancreatitis. Stable left adrenal gland nodule. Consider adrenal CT for further evaluation if clinically indicated. Recent postoperative changes of a lap band removal. Status post cholecystectomy. Please note that all CT scans at this facility use dose modulation, iterative reconstruction, and/or weight-based dosing when appropriate to reduce radiation dose to as low as reasonably achievable. Dictated by Lizbet Ricci MD @ Jan 05 2020 4:33PM (Electronically Signed)
[2020-01-05] MEDS ORDERED: Pantoprazole 40 MG Vial IVPUSH ONE (17:49)
== END 2020-01-05 18:04 | disposition home or self-care (01) ==
LOC: JP.ED 13:22
DX: K29.80 Duodenitis without bleeding (principal); I10 Essential (primary) hypertension; Z79.899 Other long term (current) drug therapy
CPT/HCPCS: 36415; 74177; 80053; 83605; 83690; 85025; 96374; 96375; 96376; 99284; C9113; J1170; J7030; J7050; Q9967